=== PATIENT | female | born 1985 | race Caucasian/White ===

== ENCOUNTER 2018-02-27 19:53 | Observation (INO) | payer MEDICAID ==
[~2018-02-27] VITALS: Ht 167.6 cm; Wt 96.0 kg
[~2018-02-27 19:53] MED LIST: SEE MED SHEET
[2018-02-27] MEDS ORDERED: LABETALOL HCL 100MG TABLET PO ONE (20:45)
[2018-02-27 21:20] LABS: BASOPHILS % 0.7 % (0.0-2.0); EOSINOPHILS % 1.4 % (0.0-5.0); HEMATOCRIT. 37.2 % (36.0-48.0); HEMOGLOBIN. 12.8 g/dL (12.0-16.0); LYMPHOCYTES % 17.7 % (20.0-50.0); MEAN CORPUSCULAR HEMOGLOBIN 30.2 pg (28.0-32.0); MEAN CORPUSCULAR VOLUME 87.6 fL (81.0-99.0); MEAN PLATELET VOLUME 8.1 fl (7.4-10.4); MONOCYTES % 6.3 % (2.0-8.0); NEUTROPHILS % 73.9 % (40.0-76.0); PLATELET 267 x1000/uL (130-400); RED BLOOD CELL COUNT 4.25 mill/uL (4.2-5.4); RED CELL DISTRIBUTION WIDTH 13.1 % (11.6-14.6)
[2018-02-27 21:27] LABS: CHLORIDE 108 mEq/L (98-107)
[2018-02-27 21:36] LABS: CLARITY URINE CLEAR (CLEAR); COLOR URINE YELLOW (YELLOW); KETONES URINE NEGATIVE (NEGATIVE); LEUKOCYTE ESTERASE URINE NEGATIVE (NEGATIVE); NITRITE URINE NEGATIVE (NEGATIVE); OCCULT BLOOD URINE TRACE (NEGATIVE); PROTEIN URINE NEGATIVE (NEGATIVE); SPECIFIC GRAVITY URINE 1.013 (1.005-1.030); UROBILINOGEN URINE 0.2 E.U./dL (0.2-1.0)
[2018-02-27 21:51] LABS: B-HCG QUANTITATIVE 29315 mIU/mL (<3)
[2018-02-27 21:56] LABS: INR 0.9; PROTHROMBIN TIME 9.2 sec (9.1-11.1)
[2018-02-27] MEDS ORDERED: PNV1TABL50 MT (23:02)
[2018-02-27] MEDS ORDERED: URSO300C4 MT (23:02)
[2018-02-27] MEDS ORDERED: NIFE90TA2 PO (23:02)
[2018-02-27] MEDS ORDERED: LABE200T28 PO (23:02)
[2018-02-27] MEDS ORDERED: ASPI-1159 MT (23:02)
[2018-02-27] MEDS ORDERED: LABETALOL HCL 20MG/4ML CARPUJECT IV NR (23:15)
[2018-02-27] MEDS: LACTATED RINGERS 1,000 ML IV SCH (23:31)
[2018-02-27 23:32] VITALS: BP 192/104
[2018-02-28] MEDS ORDERED: LABETALOL HCL 100MG TABLET PO SCH (00:45)
[2018-02-28] MEDS ORDERED: NIFEDIPINE 10MG CAPSULE PO NR ×2 (06:00→07:00)
[2018-02-28] MEDS ORDERED: BETAMETHASONE ACET/BETAMET 30 MG/5 ML VIAL IM NR (06:00)
[2018-02-28] MEDS ORDERED: LABETALOL HCL 200MG TABLET PO SCH ×2 (09:30→10:15)
[2018-02-28] MEDS: LACTATED RINGERS 1,000 ML IV SCH (10:46)
[2018-02-28] MEDS: LABETALOL HCL 200MG TABLET PO SCH ×2 (14:12→22:07)
[2018-02-28] MEDS ORDERED: NIFEDIPINE 10MG CAPSULE PO ONE (16:15)
[2018-02-28] MEDS ORDERED: NIFEDIPINE XL 90MG TAB PO SCH (17:00)
[2018-02-28] MEDS ORDERED: NIFEDIPINE 10MG CAPSULE PO SCH (17:00)
[2018-02-28] MEDS ORDERED: NIFEDIPINE XL 60MG TAB PO SCH ×2 (17:00→22:00)
[2018-02-28] MEDS ORDERED: METHYLDOPA 250MG TABLET PO SCH (21:00)
[2018-03-01] MEDS: LACTATED RINGERS 1,000 ML IV SCH (02:11)
[2018-03-01] MEDS ORDERED: NIFEDIPINE 10MG CAPSULE PO NR (05:00)
== END 2018-03-01 11:47 | disposition home or self-care (01) ==
LOC: ER 19:53 → L&D 22:16 → 7EST PP/OB 03-01 11:27
PROVIDERS: ADMIT Obstetrics & Gynecology; ATTEND Obstetrics & Gynecology
DX: O14.93 Unspecified pre-eclampsia, third trimester (principal); O10.913 Unspecified pre-existing hypertension complicating pregnancy, third trimester; O26.893 Other specified pregnancy related conditions, third trimester; L29.9 Pruritus, unspecified; R35.1 Nocturia; Z3A.31 31 weeks gestation of pregnancy
CPT/HCPCS: 36415; 76805; 76818; 80048; 80076; 81003; 84550; 84702; 85025; 85610; 86850; 86900; 86901; 96372; 96374; 99281; G0378; J0702; J3490; 96361; J7120